=== PATIENT | male | born 1950 | race African-American/Black ===

== ENCOUNTER 2016-12-01 18:24 | Emergency (ER) | payer OTHER ==
[~2016-12-01] VITALS: Ht 180.3 cm; Wt 77.1 kg
[2016-12-01] MEDS ORDERED: INDOMETHACIN 25 MG CAPSULE PO STA (20:23)
[2016-12-01] MEDS ORDERED: CEPHALEXIN 250 MG CAPSULE PO STA (20:23)
[2016-12-01] MEDS ORDERED: SMZ/TMP 800/160MG TABLET. PO ONE (20:30)
[2016-12-01] MEDS ORDERED: SULF1TAB24 PO (20:37)
[2016-12-01] MEDS ORDERED: NAPR500T3 PO (20:37)
[2016-12-01] MEDS ORDERED: CEPH-264 PO (20:37)
--- NOTE | 2016-12-01 20:37 | PHYS DOC ---
Past Medical History Past Medical History: High Cholesterol, Hypertension Past Surgical History: No Surgical History Alcohol Use: None Drug Use: None Adult General Chief Complaint Chief Complaint: OTHER COMPLAINTS HPI HPI 66 yo old male who's developed some pain in an area of redness to the left medial knee that he noted upon awakening this morning. He denies any fever or chills. He denies any trauma to the knee. Patient does state he has pain with range of motion in the left knee. He states he has not taken anything yet for his symptoms. Pt does state he has history of HTN but no significant medical problems that would impair wound healing. He rates his pain a 6/10 on the pain scale. Review of Systems Review of Systems Constitutional: Denies fever or chills [] Eyes: Denies change in visual acuity, redness, or eye pain [] HENT: Denies nasal congestion or sore throat [] Respiratory: Denies cough or shortness of breath [] Cardiovascular: No additional information not addressed in HPI [] GI: Denies abdominal pain, nausea, vomiting, bloody stools or diarrhea [] : Denies dysuria or hematuria [] Musculoskeletal: Denies back pain, has joint pain [] Integument: Denies rash or skin lesions [] Neurologic: Denies headache, focal weakness or sensory changes [] Endocrine: Denies polyuria or polydipsia [] Current Medications Current Medications Current Medications Medications (Trade) Dose Ordered Sig/Deyanira Start Time Stop Time Status Last Admin Dose Admin Cephalexin HCl (Keflex) 500 mg 1X STAT 12/01/16 20:23 12/01/16 20:26 DC 12/01/16 20:32 500 MG Indomethacin (Indocin) 50 mg 1X STAT 12/01/16 20:23 12/01/16 20:26 DC 12/01/16 20:33 50 MG Trimethoprim/ Sulfamethoxazole (Bactrim Ds) 1 tab 1X ONCE 12/01/16 20:30 12/01/16 20:31 DC 12/01/16 20:32 1 TAB Allergies Allergies Allergies Coded Allergies Type Severity Reaction Last Updated Verified No Known Drug Allergies 12/01/16 No Physical Exam Physical Exam Constitutional: Well developed, well nourished, no acute distress, non-toxic appearance. [] HENT: Normocephalic, atraumatic, bilateral external ears normal, oropharynx moist, no oral exudates, nose normal. [] Eyes: PERRLA, EOMI, conjunctiva normal, no discharge. [] Neck: Normal range of motion, no tenderness, supple, no stridor. [] Cardiovascular:Heart rate regular rhythm, no murmur [] Lungs & Thorax: Bilateral breath sounds clear to auscultation [] Abdomen: Bowel sounds normal, soft, no tenderness, no masses, no pulsatile masses. [] Skin: Warm, dry, an area of erythema approximately 3 cm in diameter to the left medial knee c/w cellulitis, no evidence of abscess formation, no rash. [] Back: No tenderness, no CVA tenderness. [] Extremities: No tenderness, no cyanosis, no clubbing, pain with passive ROM to the left knee, no edema. [] Neurologic: Alert and oriented X 3, normal motor function, normal sensory function, no focal deficits noted. [] Psychologic: Affect normal, judgement normal, mood normal. [] Current Patient Data Vital Signs Vital Signs Date Time Temp Pulse Resp B/P Pulse Ox O2 Delivery O2 Flow Rate FiO2 12/01/16 20:47 72 20 150/79 97 Room Air 12/01/16 19:17 98.3 98.3 EKG EKG [] Radiology/Procedures Radiology/Procedures [] Course & Med Decision Making Course & Med Decision Making Pertinent Labs and Imaging studies reviewed. (See chart for details) 66 yo old male who's having significant pain to the left knee with an area that appears to be cellulitis for which I will be prescribing Bactrim and Keflex. I' ll also be prescribing the patient naproxen to be taken 3 times a day for the next several days to treat for any inflammation and possible gout. At this time , the patient appears completely nontoxic and has no systemic signs of infection and so laboratory workup is not indicated. I will have him follow closely with his primary care doctor in the next several days for symptom resolution with strict instructions to return if his redness or swelling should increase as thatI would indicate that the patient is having a severe infection and would require possible hospital admission at that time. Because the patient' s physical exam is very consistent with cellulitis, I do not see an indication at this time to do any arthrocentesis of the joint. He was discharged without incident. Dragnino Disclaimer Dragon Disclaimer This electronic medical record was generated, in whole or in part, using a voice recognition dictation system. Departure Departure Impression: Primary Impression: Cellulitis Additional Impression: Knee pain Disposition: 01 HOME, SELF-CARE Admitting Physician: Other Condition: IMPROVED Referrals: NO PCP (PCP) Patient Instructions: Cellulitis, [id number] Additional Instructions: Please take your antibiotic as prescribed. Take your anti-inflammatory as prescribed. Follow up with your primary doctor in the next 2-3 days. Return to the ER if you develop any worsening of your pain or notice any worsening swelling. Scripts Cephalexin (Keflex)500 Mg [id number] Mg PO QID #40 CAP Prov:MEGAN VIEYRA DO 12/01/16 Sulfamethoxazole/Trimethoprim (Bactrim Ds Tablet)1 Each Tablet1 Tab PO BID #20 TAB Prov:MEGAN VIEYRA DO 12/01/16 Naproxen 500 Mg [id number] Mg PO TID #12 Prov:MEGAN VIEYRA DO 12/01/16 Problem Qualifiers MEGAN VIEYRA DO Dec 01, 2016 20:37
[2016-12-01 20:47] VITALS: BP 150/79
== END 2016-12-01 20:49 | disposition home or self-care (01) ==
LOC: ER 18:24
DX: L03.116 Cellulitis of left lower limb (principal); I10 Essential (primary) hypertension; E78.00 Pure hypercholesterolemia, unspecified
CPT/HCPCS: 99284